=== PATIENT | male | born 1985 | race Caucasian/White ===

== ENCOUNTER 2017-10-15 04:09 | Emergency (ER) | payer BC ==
[2017-10-15] MEDS: KETOROLAC 60 MG/2 ML INJ. IM (04:44)
== END 2017-10-15 05:07 | disposition home or self-care (01) ==
LOC: ER 04:09
DX: M54.16 Radiculopathy, lumbar region (principal); M54.41 Lumbago with sciatica, right side; K21.9 Gastro-esophageal reflux disease without esophagitis; F17.210 Nicotine dependence, cigarettes, uncomplicated; Z90.49 Acquired absence of other specified parts of digestive tract
CPT/HCPCS: 96372; 99283; J1885